=== PATIENT | female | born 1970 | race Caucasian/White ===

== ENCOUNTER → 2017-04-26 | Outpatient (CLI) | payer OTHER ==
--- NOTE | ~2017-04-26 | CT57 ---
[facility] A Service of [facility] RADIOLOGY TEXT RESULTS PATIENT: RON PRAJAPATI LOCATION: [facility] : 68 UNIT #: [id number] AGE: [address]: BERNIE DE LA TORRE SEX: F ORDER DR: [id number] [facility] [address] [place], [place] [address] [id number] O MR#: [id number] Acc #: [id number] NAME: RON PRAJAPATI : 1970 SEX: F STUDY DATE/TIME: 04/26/2017 14:45 UNIT: [facility] ROOM: STUDY DESCRIPTION: CT Chest Wo Cont Attending Physician: Bernie De La Torre Aprn Referring Physician: Bernie De La Torre Aprn Primary Care Physician: Bernie De La Torre Aprn MEDICAL IMAGING REPORT This report is preliminary unless electronic signature is present EXAM Chest CT 04/26 INDICATION Fever, chills 1 month ago. Pneumonia on prior chest x-ray. Persistent abnormal chest x-ray this week. Followup exam. TECHNIQUE Axial images were obtained through the chest without contrast. Multiplanar reformats were obtained. Comparison made with chest x-ray from 04/22/2017. This CT examination was performed with one or more of the following radiation dose reduction techniques: automatic exposure control, adjustment of mA and/or kV according to patient size, and iterative reconstruction. FINDINGS No pleural or pericardial effusion is seen. There is no adenopathy. Right lung is clear. On the left side, there is some persistent alveolar consolidation in the lower lobe abutting the fissure. Considerations would include chronic atelectasis or persistent pneumonia. Consider followup chest CT in 3 months. Left upper lobe is clear. Upper abdomen is unremarkable. IMPRESSION Area of chronic consolidation in the left lower lobe as above. This may reflect chronic atelectasis or some persistent pneumonia. Consider followup chest CT in 3 months to document stability or improvement. The exam is otherwise normal. Dictated by... José Miguel Riley Jr., M.D. [facility] A Service of [facility] RADIOLOGY TEXT RESULTS PATIENT: RON PRAJAPATI LOCATION: [facility] : 68 UNIT #: [id number] AGE: [address]: BERNIE DE LA TORRE SEX: F ORDER DR: THIS IS AN ELECTRONICALLY VERIFIED REPORT José Miguel Riley Jr., M.D. at 04/28/2017 4:39 PM DESMOND/ikshor TD: 04/28/2017 15:54 JOB #: [id number] MEDICAL IMAGING REPORT Page 1 of 1 COPY
== END | disposition home or self-care (01) ==
LOC: CCAT 13:20
DX: J18.9 Pneumonia, unspecified organism (principal); J18.1 Lobar pneumonia, unspecified organism
CPT/HCPCS: 71250